=== PATIENT | female | born 1990 | race Caucasian/White ===

== ENCOUNTER 2023-09-12 19:10 | Emergency (ER) | payer MEDICAID ==
[~2023-09-12] VITALS: Ht 167.6 cm; Wt 54.9 kg
[2023-09-12] MEDS ORDERED: HYDROMORPHONE 1 MG/1 ML DISP.SYRIN IV ONE (19:30)
[2023-09-12] MEDS ORDERED: ONDANSETRON 4 MG/2 ML VIAL IV ONE (19:30)
[2023-09-12] MEDS ORDERED: ONDANSETRON 4 MG/2 ML VIAL ONE (19:35)
[2023-09-12] MEDS ORDERED: HYDROMORPHONE 1 MG/1 ML DISP.SYRIN ONE (19:35)
[2023-09-12 19:51] LABS: BASOPHILS % (AUTO) 0.3 % (0.0-2.0); EOSINOPHILS % (AUTO) 0.4 % (0.0-7.0); HEMATOCRIT 35.8 % (31.2-41.9); HEMOGLOBIN 12.1 g/dL (10.9-14.3); LYMPHOCYTES # (AUTO) 1.2 K/uL (0.8-4.8); LYMPHOCYTES % (AUTO) 12.3 % (20.5-51.5); MEAN CORPUSCULAR HEMOGLOBIN 31.2 uug (24.7-32.8); MEAN CORPUSCULAR HGB CONC 34 g/dL (32.3-35.6); MEAN CORPUSCULAR VOLUME 92.4 fL (75.5-95.3); MONOCYTES # (AUTO) 0.5 K/uL (0.1-1.30); MONOCYTES % (AUTO) 4.9 % (0.0-11.0); NEUTROPHILS # (AUTO) 8.1 K/uL (1.8-8.9); NEUTROPHILS % (AUTO) 82.1 % (38.5-71.5); PLATELET COUNT (AUTO) 186 K/uL (179-408); RED BLOOD CELL COUNT(AUTO) 3.87 MIL/uL (3.63-4.92); RED CELL DISTRIBUTION WIDTH 13.7 % (12.3-17.7); WHITE BLOOD COUNT (AUTO) 9.8 K/uL (3.8-11.8)
[2023-09-12 19:57] LABS: DIFFERENTIAL COMMENT 1
[2023-09-12 20:14] LABS: CALCIUM 8.1 mg/dL (8.5-10.1); CARBON DIOXIDE 17 mmol/L (21-32); CHLORIDE 104 mmol/L (98-107); CREATININE 0.7 mg/dL (0.6-1.3); GLUCOSE 129 mg/dL (74-106); POTASSIUM 3.6 mmol/L (3.5-5.1); SODIUM SERUM 138 mmol/L (136-145); UREA NITROGEN, BLOOD 16 mg/dL (7-18)
[2023-09-12 20:19] LABS: ALANINE AMINOTRANSFERASE 24 U/L (14-59); ALBUMIN 3.4 g/dL (3.4-5.0); ALKALINE PHOSPHATASE 47 U/L (50-136); ASPARTATE AMINOTRANSFERASE 18 U/L (15-37); BILIRUBIN,DIRECT 0.1 mg/dL (0.0-0.2); BILIRUBIN,TOTAL 0.2 mg/dL (0.2-1.0); TOTAL PROTEIN, SERUM 6.6 g/dL (6.4-8.2)
[2023-09-12 20:38] LABS: LIPASE 27 U/L (16-77)
[2023-09-12] MEDS ORDERED: IV NORMAL SALINE 1000 ML BAG IV ONE (21:30)
[2023-09-12] MEDS ORDERED: IV NORMAL SALINE 250 ML IV ONE (21:40)
[2023-09-12] MEDS ORDERED: SWABABLE VALVE TRANSFER SET EA MC ONE (21:40)
[2023-09-12] MEDS ORDERED: IOHEXOL 350 100 ML INFUS..BTL ONE (21:40)
[2023-09-12] MEDS ORDERED: HYDR-3976 PO (22:38)
[2023-09-13 00:10] VITALS: BP 101/64; TEMP 97.8; O2SAT 99
== END 2023-09-12 23:20 | disposition home or self-care (01) ==
LOC: ER 19:12
DX: R55 Syncope and collapse (principal); R10.2 Pelvic and perineal pain; Z20.822 Contact with and (suspected) exposure to COVID-19; Z79.899 Other long term (current) drug therapy
CPT/HCPCS: 99291; 71275; 96374; 76856; 71045; 96361; 96375; 87426; 80076; 80048; 83690; 85025; 85730; 86850; 86900; 86901; 84484; 84702; 36415; 93005; 74176; J2405; Q9967; J1170; J7040; A4606; A4663

== ENCOUNTER 2025-05-27 13:43 | Emergency (ER) | payer MEDICAID ==
[~2025-05-27] VITALS: Ht 157.5 cm; Wt 51.3 kg
[~2025-05-27 13:43] MED LIST: HYDR-3976 PO
[2025-05-27 13:54] VITALS: BP 110/62
[2025-05-27 14:17] LABS: *BILIRUBIN,URIN NEGATIVE (NEGATIVE); *BLOOD, URINE 2+ (NEGATIVE); *COLOR,URINE YELLOW (YELLOW); *KETONES,URINE 2+ (NEGATIVE); *PROTEIN,URINE 1+ (NEGATIVE); *UROBILINOGEN,URINE 0.2 E.U./dl (NORMAL); LEUKOCYTE ESTERASE ,URINE TRACE (NEGATIVE); NITRITE, URINE POSITIVE (NEGATIVE); UGLUCOSE NEGATIVE (NEGATIVE)
[2025-05-27 14:40] LABS: *CLARITY,URINE SLIGHTLY CLOUDY (CLEAR)
[2025-05-27 14:47] LABS: SQUAMOUS EPITHELIAL CELL,UR MODERATE /HPF (NONE SEEN)
[2025-05-27 15:51] LABS: PLATELET COUNT (AUTO) 298 K/uL (179-408); RED BLOOD CELL COUNT(AUTO) 4.79 MIL/uL (3.63-4.92); RED CELL DISTRIBUTION WIDTH 13.2 % (12.3-17.7); WHITE BLOOD COUNT (AUTO) 12.2 K/uL (3.8-11.8)
[2025-05-27 15:58] LABS: CREATININE 0.7 mg/dL (0.6-1.3); SODIUM SERUM 134 mmol/L (136-145); UREA NITROGEN, BLOOD 9 mg/dL (7-18)
[2025-05-27] MEDS: HYDROMORPHONE 1 MG/1 ML DISP.SYRIN IV ONE (16:00)
[2025-05-27] MEDS ORDERED: HYDROMORPHONE 1 MG/1 ML DISP.SYRIN ONE (16:00)
[2025-05-27] MEDS ORDERED: PIPERACILLIN/TAZOBACTAM/D5W 50 ML IV ONE (16:00)
[2025-05-27] MEDS: ONDANSETRON 4 MG/2 ML VIAL IV ONE (16:00)
[2025-05-27] MEDS ORDERED: ONDANSETRON 4 MG/2 ML VIAL ONE (16:00)
[2025-05-27] MEDS: IV NORMAL SALINE 1000 ML BAG IV ONE (16:00)
[2025-05-27] MEDS: PIPERACILLIN SODIUM/TAZOBACTAM 3.375 G in IV DEXTROSE 5% 50 ML IV ONE (16:00)
[2025-05-27 16:04] LABS: ASPARTATE AMINOTRANSFERASE 11 U/L (15-37); TOTAL PROTEIN, SERUM 9.2 g/dL (6.4-8.2)
[2025-05-27] MEDS ORDERED: ESTR1PAT33 TP (16:10)
[2025-05-27 16:13] LABS: PREGNANCY TEST SERUM QUAN 2 miul/L (0-6)
[2025-05-27] MEDS ORDERED: IOHEXOL 300MG/ML 100 ML INFUS..BTL ONE (16:51)
[2025-05-27] MEDS ORDERED: HYDR-3980 PO (19:07)
[2025-05-27] MEDS ORDERED: CEPH500C2 PO (19:13)
[2025-05-27 19:57] VITALS: BP 110/62; O2SAT 99
== END 2025-05-27 19:58 | disposition home or self-care (01) ==
LOC: ER 13:46
DX: N10 Acute pyelonephritis (principal); R11.2 Nausea with vomiting, unspecified; R07.9 Chest pain, unspecified; Z79.3 Long term (current) use of hormonal contraceptives; Z85.41 Personal history of malignant neoplasm of cervix uteri
CPT/HCPCS: 71045; 83690; 84484; 85025; 85730; 87077; 87086; A4606; A4663; J1171; J2405; J2543; J7040; Q9967